=== PATIENT | female | born 1975 | race Caucasian/White ===

== ENCOUNTER 2017-01-13 20:10 | Emergency (ER) | payer OTHER ==
--- NOTE | 2017-01-13 20:33 | ED Physician Documentation ---
General Adult - HISTORIAN Historian: patient - HPI Stated Complaint: feeling strange Chief Complaint: General Adult Onset: hours Timing: still present Severity: moderate Further Comments: yes (Pt is a 41 yo female with recent diagnosis postural hypotension syndrome. Pt get periodic rapid heart rate accompanied by a "fullness" or "pulsing" in her whole head that comes on out of nowhere, this evening while she was sitting watching television. Pt did not become dizzy. Pt is wearing a holter monitor to evaluate this phenomenon. No chest pain, sob , fever. 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 Pt has recently has had eeg, tilt-table testing and other studies.) - ROS CONST: other ("strange feeling") EYES/ENT: none CVS/RESP: other (episodic rapid heart rate) GI/: none MS/SKIN/LYMPH: none NEURO/PSYCH: other ("fullness in head") - PAST HX Past History: other (anxiety, postural orthostatic hypotension.) Allergies/Adverse Reactions: Allergies Allergy/AdvReac Type Severity Reaction Status Date / Time No Known Drug Allergies Allergy Verified 01/13/17 20:29 Home Medications: Ambulatory Orders Medication Instructions Recorded Alprazolam [Alprazolam] 0.5 mg PO BID 01/13/17 Fludrocortisone Acetate 0.1 mg PO QDAY 01/13/17 Midodrine HCl [Midodrine HCl] 01/13/17 Potassium Chloride [Klor-Con M20] 20 meq PO DAILY #30 tab.er.prt 01/13/17 - SOCIAL HX Smoking History: non-smoker - FAMILY HX Family History: No - VITAL SIGNS Vital Signs: Vital Signs Temp Pulse Resp BP Pulse Ox 98.5 F 103 H 20 159/80 100 01/13/17 20:24 01/13/17 20:24 01/13/17 20:24 01/13/17 20:24 01/13/17 20:24 - REVIEWED ASSESSMENTS Nursing Assessment Reviewed: Yes Vitals Reviewed: Yes Progress - Progress Progress: Rx KCl 20 mEq po qd, 1st dose in ER. f/u pcp. - EKG/XRAY/CT EKG: NSR (HR=70; normal EKG.) General Adult Physical Exam - PHYSICAL EXAM GENERAL APPEARANCE: mild distress EENT: eye inspection normal, pharynx normal NECK: normal inspection, supple RESPIRATORY: no resp distress, chest non-tender, breath sounds normal CVS: reg rate & rhythm, heart sounds normal ABDOMEN: soft, no organomegaly, normal bowel sounds BACK: normal inspection, no CVA tenderness SKIN: warm/dry, normal color EXTREMITIES: non-tender, normal range of motion, no evidence of injury NEURO: oriented X3, motor nml, sensation nml Discharge Clincal Impression: mild hypokalemia, hx orthostatic hypotension Prescriptions: Potassium Chloride [Klor-Con M20] 20 meq PO DAILY #30 tab.er.prt Referrals: Brice Mcclellan MD [Primary Care Provider] - Home Medications: Ambulatory Orders Alprazolam [Alprazolam] 0.5 mg PO BID 01/13/17 Fludrocortisone Acetate 0.1 mg PO QDAY 01/13/17 Midodrine HCl [Midodrine HCl] 01/13/17 Potassium Chloride [Klor-Con M20] 20 meq PO DAILY #30 tab.er.prt 01/13/17 Condition: Good Disposition: 01 HOME, SELF-CARE Decision to Admit: NO Decision Time: 21:38
[2017-01-13 21:03] LABS: BASOPHILS % 0.5 (0.0-1.5); MEAN CORPUSCULAR HEMOGLOBIN 30.1 pg (28.0-34.0); MEAN CORPUSCULAR VOLUME 90.7 fl (80.0-100.0); MONOCYTES % 5.2 % (0.0-11.0); NEUTROPHILS # 2.4 # k/uL (1.4-7.7)
[2017-01-13 21:22] LABS: eGFR (African) > 60; eGFR (Non-African) > 60
[2017-01-13] MEDS ORDERED: POTASSIUM CHLORIDE 20 MEQ TABLET.ER PO ONE (21:32)
[2017-01-13 23:14] VITALS: BP 124/77
== END 2017-01-13 21:45 | disposition home or self-care (01) ==
LOC: ED 20:10
DX: E87.6 Hypokalemia (principal); I95.1 Orthostatic hypotension
CPT/HCPCS: 80053; 85025; A9270; 99283

== ENCOUNTER 2017-01-25 10:34 | Emergency (ER) | payer OTHER ==
[2017-01-25 10:57] LABS: BASOPHILS % 0.7 (0.0-1.5); EOSINOPHILS % 2.6 % (0.0-6.8); MEAN CORPUSCULAR HEMOGLOBIN 29.5 pg (28.0-34.0); MONOCYTES % 5.2 % (0.0-11.0); NEUTROPHILS # 2.4 # k/uL (1.4-7.7)
[2017-01-25 11:11] LABS: eGFR (African) > 60; eGFR (Non-African) > 60
--- NOTE | 2017-01-25 12:11 | ED Physician Documentation ---
General Adult - HISTORIAN Historian: patient - HPI Stated Complaint: fast heart rate Chief Complaint: General Adult Further Comments: yes (41 year old female patient presents with complaints of "fast heart rate". Patient states she was up walking around, she checked her heart rate and got 150. Patient states "I have one of those things" and pointed at the pulse oximeter.) - ROS CONST: no problems EYES/ENT: none CVS/RESP: none GI/: none MS/SKIN/LYMPH: none NEURO/PSYCH: denies: headache, fainting, dizziness, difficulty walking, difficulty with speech - PAST HX Past History: other (Postural hypotension, anxiety) Allergies/Adverse Reactions: Allergies Allergy/AdvReac Type Severity Reaction Status Date / Time No Known Drug Allergies Allergy Verified 01/25/17 10:54 Home Medications: Ambulatory Orders Medication Instructions Recorded Alprazolam [Alprazolam] 0.5 mg PO BID 01/13/17 Fludrocortisone Acetate 0.1 mg PO QDAY 01/13/17 Midodrine HCl [Midodrine HCl] 2.5 mg PO 0712 01/13/17 Potassium Chloride [Klor-Con M20] 20 meq PO DAILY #30 tab.er.prt 01/13/17 - SOCIAL HX Smoking History: non-smoker - FAMILY HX Family History: Yes - VITAL SIGNS Vital Signs: Vital Signs Temp Pulse Resp BP Pulse Ox 129 H 13 155/94 98 01/25/17 10:35 01/25/17 10:35 01/25/17 10:35 01/25/17 10:35 - REVIEWED ASSESSMENTS Nursing Assessment Reviewed: Yes Vitals Reviewed: Yes Progress - Progress Progress: patient seen in Er on 01/13/2017 - records and lab reviewed. Recent EEG, tilt table and 30 holter monitor - all negative. Reviewed lab results with patient and EKG results with patient. Reassurance given. Patient concerned about "redness, all over" on chest. Rash on right upper anterior chest wall from EKG electrode. 2 cm erythema. Reviewed discharge instructions with patient. ED Results Lab/Radiology - Lab Results Lab Results: Lab Results 01/25/17 01/25/17 10:50 10:50 WBC 4.70 K/ul K/ul (4.00-12.00) RBC 5.03 M/ul M/ul (3.90-5.20) Hgb 14.8 g/dL g/dL (12.0-16.0) Hct 45.3 % % (34.5-46.5) MCV 90.0 fl fl (80.0-100.0) MCH 29.5 pg pg (28.0-34.0) MCHC 32.7 g/dL g/dL (30.0-36.0) RDW 12.6 % % (11.3-14.3) Plt Count 152 K/mm3 K/mm3 (130-400) Neut % (Auto) 50.7 % % (39.0-79.0) Lymph % (Auto) 38.6 % % (16.0-50.0) [place] % (Auto) 5.2 % % (0.0-11.0) Eos % (Auto) 2.6 % % (0.0-6.8) Baso % (Auto) 0.7 (0.0-1.5) Neut # 2.4 # k/uL # k/uL (1.4-7.7) Lymph # 1.8 # k/uL # k/uL (0.6-4.0) [place] # 0.2 # k/uL # k/uL (0.0-0.9) Eos # 0.1 # k/uL # k/uL (0.0-0.6) Baso # 0.0 # k/uL # k/uL (0.0-0.5) Reactive Lymphs % 2.3 % % (0.0-5.0) Reactive Lymphs # 0.1 # k/uL # k/uL (0.0-0.8) Sodium 140 mmol/L mmol/L (136-145) Potassium 3.7 mmol/L mmol/L (3.5-5.0) Chloride 105 mmol/L mmol/L (98-110) Carbon Dioxide 33 mmol/L H mmol/L (20-32) BUN 8 mg/dL L mg/dL (10-26) Creatinine 0.7 mg/dL mg/dL (0.4-1.5) Estimated Creat Clear 136 Est GFR ( Amer) > 60 (60 - ) Est GFR (Non-Af Amer) > 60 (60 - ) Glucose 109 mg/dL H mg/dL (70-99) Calcium 10.2 mg/dL mg/dL (8.5-10.5) Total Bilirubin 0.4 mg/dL mg/dL (0.2-1.2) AST 20 U/L U/L (0-41) ALT 21 U/L U/L (0-45) Alkaline Phosphatase 51 U/L U/L (46-116) Total Protein 7.5 g/dL g/dL (6.0-8.5) Albumin 4.7 g/dL g/dL (3.0-5.5) - Orders Orders: ED Orders Category Date Time Status Place Saline Lock/IV NOW Care 01/25/17 10:43 Active CBC/PLATELET/DIFF Stat Lab 01/25/17 10:50 Completed CMP Stat Lab 01/25/17 10:50 Completed EKG WITH COMPARISON Stat Ther 01/25/17 10:43 Ordered General Adult Physical Exam - PHYSICAL EXAM GENERAL APPEARANCE: anxious EENT: eye inspection normal, ENT inspection normal, pharynx normal, no signs of dehydration, JING, no nystagmus, TM's nml RESPIRATORY: no resp distress, chest non-tender, breath sounds normal CVS: reg rate & rhythm, heart sounds normal, equal pulses, no murmur, no gallop , PMI nml, no JVD, no friction rub, other (Heart rate 94-105 while in Er) ABDOMEN: soft, no organomegaly, normal bowel sounds, no abdominal bruit, no distension SKIN: normal color, warm/dry, NR, INT, PAL, DR EXTREMITIES: non-tender, normal range of motion, no evidence of injury, no edema , J, [employer]PER[employer] NEURO: oriented X3, CN's nml as tested, motor nml, sensation nml, mood/affect nml Discharge Clincal Impression: Tachycardia Referrals: Brice Mcclellan MD [Primary Care Provider] - 2 Days Additional Instructions: Your heart rate in the emergency room was 94-105 The heart rate will naturally rise with any activity - walking, house work, exercise. Vitals were stable. Follow up with your primary care provider as needed. Check your pulse if you are feeling poorly or have palpitations Home Medications: Ambulatory Orders Alprazolam [Alprazolam] 0.5 mg PO BID 01/13/17 Fludrocortisone Acetate 0.1 mg PO QDAY 01/13/17 Midodrine HCl [Midodrine HCl] 2[place] [address]/13/17 Potassium Chloride [Klor-Con M20] 20 meq PO DAILY #30 tab.er.prt 01/13/17 Condition: Stable Disposition: 01 HOME, SELF-CARE Decision to Admit: NO Decision Time: 12:11
[2017-01-25 12:30] VITALS: BP 131/75
== END 2017-01-25 12:28 | disposition home or self-care (01) ==
LOC: ED 10:34
DX: R00.0 Tachycardia, unspecified (principal)
CPT/HCPCS: 80053; 85025; 99283; S1016

== ENCOUNTER 2017-02-16 08:39 | Outpatient (CLI) | payer OTHER | END 2017-02-16 08:40 | LOC: LAB 08:39 | PROVIDERS: ATTEND Internal Medicine Clinical Cardiac Electrophysiology | DX: Z02.9 Encounter for administrative examinations, unspecified (principal) ==

== ENCOUNTER 2017-02-17 07:41 | Outpatient (CLI) | payer OTHER ==
[2017-02-20 07:41] LABS: EPINEPHRINE UG/G CRT 3 ug/g CRT (0-20)
== END 2017-02-17 07:42 ==
LOC: LAB 07:41
PROVIDERS: ATTEND Internal Medicine Clinical Cardiac Electrophysiology
DX: R42 Dizziness and giddiness (principal); I10 Essential (primary) hypertension; I95.9 Hypotension, unspecified
CPT/HCPCS: 36415; 81050; 82384; 83497; 83835; 84585; 86316

== ENCOUNTER 2017-02-19 13:10 | Outpatient (CLI) | payer OTHER ==
[2017-02-19 13:58] LABS: eGFR (African) > 60; eGFR (Non-African) > 60
== END 2017-02-19 13:11 ==
LOC: LAB 13:10
PROVIDERS: ATTEND Internal Medicine Clinical Cardiac Electrophysiology
DX: I95.2 Hypotension due to drugs (principal); R00.2 Palpitations
CPT/HCPCS: 36415; 80053

== ENCOUNTER 2017-03-05 13:24 | Outpatient (CLI) | payer OTHER ==
--- NOTE | 2017-03-09 14:46 | CONSULTATION REPORT ---
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 This 41- year-old white woman started developing symptoms in 2004. Her symptom complex consists of knee pain after prolonged kneeling, gum disease, a diagnosis of a heart murmur, and more recently, POTS syndrome or postural orthostatic tachycardia syndrome, and a recent echocardiogram suggesting mitral valve prolapse. Associated symptoms are brain fog, fatigue, weakness, bleeding gums, shortness of breath, palpitations, dizziness, and anxiety. Otherwise, the patient has had no loss of vision. No chest pain. She has some easy bruising. She has had no joint pain. No history of dislocations. No skin abnormalities. No bowel symptoms. PAST MEDICAL HISTORY: As above. PRESENT MEDICATIONS: 1. Flonase. 2. Midodrine. 3. Fludrocortisone. 4. Clonazepam. 5. Sotalol. 6. Loratadine. 7. Potassium. ALLERGIES: She has no known drug allergies. SOCIAL HISTORY: No smoking. No drinking. She is . She works as a teacher. FAMILY HISTORY: Her first cousin has hypermobility syndrome. PHYSICAL EXAMINATION: General: She looks well. Vital Signs: Height: 5 feet 11 inches. Weight: 151. T: 98, P: 70, R: 18, BP: 105/72. HEENT: Sclerae are anicteric, white. Conjunctivae are pink. Skin: No hyperelasticity at the arms. JOINTS: Mild hyperextension at the elbows of approximately 5 degrees. No hyperextension of the knees. Normal lumbar flexion. No hypermobility of the fingers or the wrists or the shoulders. LUNGS: Clear. HEART: Regular rhythm. ABDOMEN: Soft and nontender. VASCULAR: No edema or cyanosis. IMPRESSION: 1. Postural orthostatic tachycardia (POTS) syndrome. 2. Mitral valve prolapse by echocardiogram. DISCUSSION: At this point, I cannot elicit any significant joint hypermobility for her to fulfill the criteria for [place]-Danlos syndrome, nor does she have any features for Marfan syndrome or cutis laxa. PLAN: I suggested that the patient continue yearly echocardiograms and continue management with Dr. Blayne Ellis. Thank you very much. cc: Dr. Brice NAQVI
== END 2017-03-05 13:34 ==
LOC: RHEU 13:24
PROVIDERS: ATTEND Internal Medicine
DX: R00.0 Tachycardia, unspecified (principal); I34.1 Nonrheumatic mitral (valve) prolapse
CPT/HCPCS: 99204

== ENCOUNTER 2017-03-11 10:14 | Outpatient (CLI) | payer OTHER | END 2017-03-11 10:15 | LOC: RT 10:14 | PROVIDERS: ATTEND Internal Medicine Clinical Cardiac Electrophysiology | DX: I47.2 Ventricular tachycardia (principal) ==

== ENCOUNTER 2017-03-29 08:27 | Outpatient (CLI) | payer OTHER | END 2017-03-29 08:30 | LOC: LAB 08:27 | PROVIDERS: ATTEND Allergy & Immunology | DX: R23.2 Flushing (principal); Q82.2 Congenital cutaneous mastocytosis | CPT/HCPCS: 36415; 81050; 82542; 83520; 84150 ==

== ENCOUNTER 2017-05-13 16:32 | Outpatient (CLI) | payer OTHER ==
[2017-05-13 17:32] LABS: eGFR (African) > 60; eGFR (Non-African) > 60
== END 2017-05-13 16:33 ==
LOC: LAB 16:32
PROVIDERS: ATTEND Family Medicine
DX: I95.1 Orthostatic hypotension (principal); R00.0 Tachycardia, unspecified
CPT/HCPCS: 36415; 80053; 83735

== ENCOUNTER 2017-07-30 15:55 | Outpatient (CLI) | payer OTHER ==
[2017-07-30 16:19] LABS: BASOPHILS % 0.6 (0.0-1.5); EOSINOPHILS % 2.5 % (0.0-6.8); MEAN CORPUSCULAR HEMOGLOBIN 29.8 pg (28.0-34.0); MEAN CORPUSCULAR VOLUME 88.9 fl (80.0-100.0); NEUTROPHILS # 2.3 # k/uL (1.4-7.7)
[2017-07-30 17:05] LABS: eGFR (African) > 60; eGFR (Non-African) > 60
[2017-07-31 01:55] LABS: VITAMIN D, 25-HYDROXY 48 ng/mL (30-100)
== END 2017-07-30 15:56 ==
LOC: LAB 15:55
PROVIDERS: ATTEND Family Medicine
DX: I95.1 Orthostatic hypotension (principal); R00.0 Tachycardia, unspecified; D64.9 Anemia, unspecified; E55.9 Vitamin D deficiency, unspecified
CPT/HCPCS: 36415; 80053; 82306; 82607; 85025

== ENCOUNTER 2017-09-13 20:53 | Emergency (ER) | payer OTHER ==
--- NOTE | 2017-09-13 21:05 | ED Physician Documentation ---
Upper Respiratory Symptoms - HISTORIAN Historian: patient - PAST HX Allergies/Adverse Reactions: Allergies Allergy/AdvReac Type Severity Reaction Status Date / Time No Known Drug Allergies Allergy Verified 01/25/17 10:54 Home Medications: Ambulatory Orders Medication Instructions Recorded Fludrocortisone Acetate 0.1 mg PO QDAY 01/13/17 - VITAL SIGNS Vital Signs: Vital Signs Temp Pulse Resp BP Pulse Ox 131/75 01/25/17 12:28 Discharge Referrals: Brice Mcclellan MD [Primary Care Provider] - 2 Days
[2017-09-13 21:14] VITALS: BP 123/83
== END 2017-09-13 21:10 | disposition left against medical advice (07) ==
LOC: ED 20:53
DX: Z53.21 Procedure and treatment not carried out due to patient leaving prior to being seen by health care provider (principal); R05 Cough
CPT/HCPCS: 99281

== ENCOUNTER 2017-11-22 15:25 | Outpatient (CLI) | payer OTHER ==
[2017-11-22 15:49] LABS: BASOPHILS % 0.4 (0.0-1.5); EOSINOPHILS % 1.5 % (0.0-6.8); MEAN CORPUSCULAR HEMOGLOBIN 29.5 pg (28.0-34.0); MEAN CORPUSCULAR VOLUME 88.9 fl (80.0-100.0); NEUTROPHILS # 2.9 # k/uL (1.4-7.7)
[2017-11-22 16:25] LABS: eGFR (African) > 60; eGFR (Non-African) > 60
== END 2017-11-22 15:26 ==
LOC: LAB 15:25
PROVIDERS: ATTEND Physician Assistant
DX: R42 Dizziness and giddiness (principal)
CPT/HCPCS: 36415; 80053; 85025

== ENCOUNTER 2018-02-10 09:42 | Outpatient (CLI) | payer OTHER | END 2018-02-10 12:18 | LOC: LAB 09:42 | PROVIDERS: ATTEND Family Medicine | DX: R50.9 Fever, unspecified (principal) | CPT/HCPCS: 36415; 86618; 86666; 86757 ==

== ENCOUNTER 2018-04-07 20:44 | Emergency (ER) | payer OTHER ==
[2018-04-07 20:59] VITALS: BP 126/79
[2018-04-07 21:24] LABS: BASOPHILS % 0.5 (0.0-1.5); MEAN CORPUSCULAR HEMOGLOBIN 30.1 pg (28.0-34.0); MEAN CORPUSCULAR VOLUME 89.7 fl (80.0-100.0); MONOCYTES % 5.1 % (0.0-11.0); NEUTROPHILS # 2.6 # k/uL (1.4-7.7)
--- NOTE | 2018-04-07 21:35 | ED Physician Documentation ---
General Adult - HISTORIAN Historian: patient - HPI Stated Complaint: blurry vision Chief Complaint: General Adult Further Comments: yes (42 year old female patient presents with complaint of slow heart rate, high BP and blurry vision.) - ROS CONST: no problems EYES/ENT: other (blurry vision) CVS/RESP: none GI/: none MS/SKIN/LYMPH: none NEURO/PSYCH: denies: headache, fainting, dizziness, tingling, numbness, difficulty walking, difficulty with speech, anxiety, depression - PAST HX Past History: other (depression, POTS) Other History: none Allergies/Adverse Reactions: Allergies Allergy/AdvReac Type Severity Reaction Status Date / Time amoxicillin [From Augmentin] AdvReac [place] Verified 04/07/18 20:59 clavulanic acid AdvReac [place] Verified 04/07/18 20:59 [From Augmentin] metoprolol AdvReac [place] Verified 09/13/17 21:15 s Home Medications: Ambulatory Orders Medication Instructions Recorded Sertraline HCl [Zoloft] 1 tab PO DAILY 04/07/18 - SOCIAL HX Smoking History: non-smoker - FAMILY HX Family History: No - VITAL SIGNS Vital Signs: Vital Signs Temp Pulse Resp BP Pulse Ox 98.7 F 58 L 17 126/79 99 04/07/18 20:55 04/07/18 20:55 04/07/18 20:55 04/07/18 20:55 04/07/18 20:55 - REVIEWED ASSESSMENTS Nursing Assessment Reviewed: Yes Vitals Reviewed: Yes Progress - Progress Progress: Old records reviewed. Heart rate remained 58-65 while in Er ED Results Lab/Radiology - Lab Results Lab Results: Lab Results 04/07/18 21:16 WBC 5.70 K/ul K/ul (4.00-12.00) RBC 4.37 M/ul M/ul (3.90-5.20) Hgb 13.2 g/dL g/dL (12.0-16.0) Hct 39.2 % % (34.5-46.5) MCV 89.7 fl fl (80.0-100.0) MCH 30.1 pg pg (28.0-34.0) MCHC 33.6 g/dL g/dL (30.0-36.0) RDW 12.7 % % (11.3-14.3) Plt Count 207 K/mm3 K/mm3 (130-400) Neut % (Auto) 45.1 % % (39.0-79.0) Lymph % (Auto) 44.1 % % (16.0-50.0) [place] % (Auto) 5.1 % % (0.0-11.0) Eos % (Auto) 3.0 % % (0.0-6.8) Baso % (Auto) 0.5 (0.0-1.5) Neut # (Auto) 2.6 # k/uL # k/uL (1.4-7.7) Lymph # (Auto) 2.5 # k/uL # k/uL (0.6-4.0) [place] # (Auto) 0.3 # k/uL # k/uL (0.0-0.9) Eos # (Auto) 0.2 # k/uL # k/uL (0.0-0.6) Baso # (Auto) 0.0 # k/uL # k/uL (0.0-0.5) Reactive Lymphs % 2.1 % % (0.0-5.0) Reactive Lymphs # 0.1 # k/uL # k/uL (0.0-0.8) - Orders Orders: ED Orders Category Date Time Status CBC/PLATELET/DIFF Stat Lab 04/07/18 21:16 Completed CMP Stat Lab 04/07/18 21:16 Received General Adult Physical Exam - PHYSICAL EXAM GENERAL APPEARANCE: [id number] N EENT: eye inspection normal, ENT inspection normal, pharynx normal, no signs of dehydration, JING, no nystagmus, TM's nml, other (see visual acuity in nurses notes) RESPIRATORY: no resp distress, chest non-tender, breath sounds normal CVS: reg rate & rhythm, heart sounds normal, equal pulses, no murmur, no gallop , PMI nml, no JVD, no friction rub, 24 ABDOMEN: soft, no organomegaly, normal bowel sounds, no abdominal bruit, no distension SKIN: normal color, warm/dry, NR, INT, PAL, DR EXTREMITIES: non-tender, normal range of motion, no evidence of injury, no edema , J, 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 If symptoms become worse, do not drive and follow up with Dr Calzada. Condition: Stable Disposition: 01 HOME, SELF-CARE Decision to Admit: NO Decision Time: 21:50
[2018-04-07 21:39] LABS: eGFR (African) > 60; eGFR (Non-African) > 60
== END 2018-04-07 21:53 | disposition home or self-care (01) ==
LOC: ED 20:44
DX: H53.8 Other visual disturbances (principal)
CPT/HCPCS: 80053; 85025

== ENCOUNTER 2018-08-25 17:24 | Emergency (ER) | payer OTHER ==
[2018-08-25 17:40] VITALS: BP 115/76
--- NOTE | 2018-08-25 17:56 | ED Physician Documentation ---
Sore Throat/Dental Pain - HISTORIAN Historian: patient - HPI Stated Complaint: Sore throat Chief Complaint: Sore Throat Onset: days ago (2) Context: Possible Infection Associated Symptoms: sore throat, mild, runny nose, congestion. denies: fever, chills Worsened By: nothing Further Comments: yes (She states she started to have throat pain yesterday and then it started to hurt with swallowing today. She has had congestion for a few weeks and no fever She works at a school) - ROS CONST: no problems - PAST HX Past History: none Allergies/Adverse Reactions: Allergies Allergy/AdvReac Type Severity Reaction Status Date / Time amoxicillin [From Augmentin] AdvReac Red Eye Verified 08/25/18 17:41 clavulanic acid AdvReac [place] Verified 08/25/18 17:41 [From Augmentin] metoprolol AdvReac Palp[place] Verified 08/25/18 17:41 s Home Medications: Ambulatory Orders Medication Instructions Recorded Sertraline HCl [Zoloft] 1 tab PO DAILY 04/07/18 - SOCIAL HX Smoking History: non-smoker Alcohol Use: none Drug Use: none - FAMILY HX Family History: No - VITAL SIGNS Vital Signs: Vital Signs Temp Pulse Resp BP Pulse Ox 95.7 F L 78 15 115/76 97 08/25/18 18:07 08/25/18 18:07 08/25/18 18:07 08/25/18 18:07 08/25/18 18:07 - REVIEWED ASSESSMENTS Nursing Assessment Reviewed: Yes Vitals Reviewed: Yes ED Results Lab/Radiology - Orders Orders: ED Orders Category Date Time Status GRP A STREP SCREEN Stat Lab 08/25/18 15:45 Ordered Sore throat Physical Exam - EXAM General Appearance: no acute distress, alert Head/Neck: head nml inspection, no lymphadenopathy, thyroid nml Mouth/Throat: lips nml, no air way problems, pharyngeal erythema Ear/Nose: nml inspection Respiratory: no resp. distress, breath sounds nml CVS: reg. rate & rhythm, heart sounds nml Abdomen: soft, no distension Extremities: non-tender Skin: warm/dry Neuro/Psych: oriented x3 Discharge Clincal Impression: Strep throat Referrals: Hamida Calzada MD [Primary Care Provider] - 2 Days Comments: 1. Azithromycin (zpack) as directed -- after discharge she states she cannot take due to medication interaction Keflex 500 mg prescribed 2. Warm salt water gargles 3. Increase fluid 4. OTC meds as needed for cough or pain 5. Follow up wit PCP if no improvement in 2-4 days 6. Return to ER for any concerns Condition: Stable Disposition: 01 HOME, SELF-CARE Decision to Admit: NO Date of Decison to Admit: 08/25/18 Decision Time: 18:07
== END 2018-08-25 18:07 | disposition home or self-care (01) ==
LOC: ED 17:24
DX: J02.0 Streptococcal pharyngitis (principal)
CPT/HCPCS: 87070; 87880; 99282; 99283

== ENCOUNTER 2018-09-14 11:26 | Outpatient (CLI) | payer OTHER ==
[2018-09-14 12:19] LABS: eGFR (Non-African) > 60
[2018-09-18 18:02] LABS: IRON SERUM 84 ug/dL (37-145)
== END 2018-09-14 11:28 ==
LOC: LAB 11:26
PROVIDERS: ATTEND Family Medicine
DX: R00.0 Tachycardia, unspecified (principal); E55.9 Vitamin D deficiency, unspecified; E83.42 Hypomagnesemia; R53.82 Chronic fatigue, unspecified; D50.9 Iron deficiency anemia, unspecified
CPT/HCPCS: 36415; 80053; 82306; 82607; 83540; 83735

== ENCOUNTER 2018-11-04 08:02 | Outpatient (CLI) | payer OTHER | END 2018-11-04 08:10 | LOC: LAB 08:02 | PROVIDERS: ATTEND Nurse Practitioner Family | DX: R00.0 Tachycardia, unspecified (principal) | CPT/HCPCS: 36415; 80061 ==

== ENCOUNTER 2018-12-08 15:36 | Outpatient (CLI) | payer OTHER | END 2018-12-08 15:38 | LOC: LAB 15:36 | PROVIDERS: ATTEND Internal Medicine Cardiovascular Disease | DX: I34.0 Nonrheumatic mitral (valve) insufficiency (principal); R00.2 Palpitations; R01.1 Cardiac murmur, unspecified | CPT/HCPCS: 36415; 83880 ==